=== PATIENT | female | born 1980 | race African-American/Black ===

== ENCOUNTER → 2021-12-31 12:18 | Outpatient (CLI) | payer BC, SELFPAY ==
--- NOTE | ~2021-12-31 | US_ITS ---
EXAMINATION: US pelvic complete w TV DATE: 12/31/2021 13:35 INDICATION: Pelvic pain. Comparison:No prior studies for comparison. TECHNIQUE: Multiple transabdominal and endovaginal sonographic images of the pelvis performed. FINDINGS: The uterus measures 12.2 x 6.6 x 7.8 cm. There is a uterine fibroid measuring 5.1 x 4.8 x 4 .4 cm. The endometrial complex measures 5.6 mm. The right ovary measures 2.1 x 1.6 x 1.6 cm and the left ovary is not visualized. Normal Doppler sign al in the right ovary. There is no free fluid in the pelvis. There are no abnormal masses seen on either side. IMPRESSION: 1. Enlarged fibroid uterus. Reviewed, dictated and finalized at location B. [employer] IMPRESSION: 1. Enlarged fibroid uterus.
== END ==
PROVIDERS: Visit Provider Student in an Organized Health Care Education/Training Program
DX: R10.2 Pelvic and perineal pain (principal); D25.9 Leiomyoma of uterus, unspecified
CPT/HCPCS: 76830; 76856